=== PATIENT | male | born 1995 | race Caucasian/White ===

== ENCOUNTER 2018-01-07 10:34 | Emergency (ER) | payer OTHER ==
[~2018-01-07] VITALS: Ht 170.2 cm; Wt 81.7 kg
[~2018-01-07 10:34] MED LIST: ACETAMINOPHEN-1 EAC1 PO; ADDERALL 10 MG10 MG PO; FLEXERIL PO; IBUPROFEN 800800 MG PO; PEPCID40 MG PO; ULTRAM 50MG TAB50 MG PO
[2018-01-07 10:42] VITALS: BP 136/92
[2018-01-07] MEDS ORDERED: AMOXICILLIN 50500 MG PO (10:54)
== END 2018-01-07 10:58 | disposition home or self-care (01) ==
LOC: M.ERS 10:34
DX: K04.7 Periapical abscess without sinus (principal); F90.9 Attention-deficit hyperactivity disorder, unspecified type; K50.90 Crohn's disease, unspecified, without complications

== ENCOUNTER 2018-10-24 19:05 | Emergency (ER) | payer OTHER ==
[~2018-10-24] VITALS: Ht 165.1 cm; Wt 81.7 kg
[~2018-10-24 19:05] MED LIST changes: +AMOXICILLIN 50500 MG PO
[2018-10-24] MEDS ORDERED: IBUPROFEN 600600 M1 PO (19:55)
[2018-10-24 20:08] VITALS: BP 125/72
== END 2018-10-24 20:08 | disposition home or self-care (01) ==
LOC: M.ERS 19:05
DX: S93.401A Sprain of unspecified ligament of right ankle, initial encounter (principal); K50.90 Crohn's disease, unspecified, without complications; F90.0 Attention-deficit hyperactivity disorder, predominantly inattentive type; X50.0XXA Overexertion from strenuous movement or load, initial encounter; Y92.89 Other specified places as the place of occurrence of the external cause; Y93.89 Activity, other specified; Y99.8 Other external cause status

== ENCOUNTER 2020-09-17 22:02 | Emergency (ER) | payer BC ==
[~2020-09-17] VITALS: Ht 170.2 cm; Wt 63.5 kg
[~2020-09-17 22:02] MED LIST changes: +IBUPROFEN 600600 M1 PO
[2020-09-17] MEDS ORDERED: ADZENYS PO (22:33)
[2020-09-17] MEDS ORDERED: DRIZALMA SPRINK60 MG PO (22:33)
[2020-09-17 23:53] LABS: ABSOLUTE BASOPHILS 0.1 thou/uL (0.0-0.2); ABSOLUTE EOSINOPHILS 0.1 thou/uL (0.0-0.7); ABSOLUTE LYMPHOCYTES 3.2 thou/uL (0.8-5.3); ABSOLUTE MONOCYTES 0.7 thou/uL (0.0-1.2); ABSOLUTE NEUTROPHILS 3.1 thou/uL (1.6-8.1); BASOPHILS 0.8 %; EOSINOPHILS 1.6 %; HEMATOCRIT 38.9 % (42.0-52.0); HEMOGLOBIN 13.8 gm/dL (14.0-18.0); LYMPHOCYTES 45.2 %; MCH 30.3 pg (26.0-34.0); MCHC 35.3 g/dL (28.0-37.0); MCV 85.6 fL (80.0-100.0); MONOCYTES 9.4 %; NUCLEATED RBCS 0 /100WBC; PLATELET COUNT* 291 thou/uL (150-400); RBC 4.55 mil/uL (4.50-6.00); RDW-CV 12.6 % (10.5-14.5); WBC 7.1 thou/uL (4.0-11.0)
[2020-09-18 00:03] LABS: CALCIUM 8.8 mg/dL (8.5-10.1); CREATININE 0.7 mg/dL (0.6-1.3); POTASSIUM 3.5 mmol/L (3.5-5.1)
[2020-09-18 00:09] LABS: ALBUMIN 4.1 g/dL (3.4-5.0); TOTAL BILIRUBIN 1.9 mg/dL (<0.1-1.0); TOTAL PROTEIN 6.8 g/dL (6.4-8.2)
[2020-09-18] MEDS ORDERED: ZOFRAN ODT4 MG PO (00:58)
[2020-09-18] MEDS ORDERED: LOMOTIL TABLET1 EACH PO (00:58)
[2020-09-18 01:21] VITALS: BP 124/86
== END 2020-09-18 01:21 | disposition home or self-care (01) ==
LOC: M.ERS 22:02
PROVIDERS: Personal Emergency Response Attendant
DX: K52.9 Noninfective gastroenteritis and colitis, unspecified (principal); Z20.822 Contact with and (suspected) exposure to COVID-19; K50.90 Crohn's disease, unspecified, without complications